=== PATIENT | female | born 1930 | race Caucasian/White ===

== ENCOUNTER → 2016-11-11 | Outpatient (CLI) | payer BC ==
[~2016-11-11] MED LIST: ACET-749 PO; ASPI81TA28 PO; ATEN50TA8 PO; CALC-20 PO; CARB25TA PO; CARB25TA12 PO; CLON0.5T3 PO; MECL1TAB42 PO; MULT-614 PO; NAPR1TAB9 PO; PRLSR20 PO; SELE5CAP2 PO; SENN-65 PO
[2016-11-11 17:33] LABS: BASO % 0.6 %; BASO ABS # 0.04 K/uL (0-0.2); COMPLETE YES; EOS % 5.3 %; HEMATOCRIT 38.2 % (37-47); IG% 0.1 %; LYMPH % 19.7 %; MEAN CELL VOLUME 95.5 fL (80-100); MEAN CORPUSCULAR HGB CONC 32.5 g/dl (32-36); MEAN PLATELET VOLUME 11.2 fL (7.4-10.4); MONO % 11.4 %; NEUT % 62.9 %; PLATELET COUNT 267 K/uL (130-400); WHITE BLOOD COUNT 7.12 K/uL (4.8-10.8)
[2016-11-11 17:49] LABS: ALT/SGPT 11 U/L (12-78); AST/SGOT 15 U/L (15-37); BLOOD UREA NITROGEN 26 mg/dl (7-18); BUN/CREATININE RATIO 23.3 (10-20); CALCIUM 9.4 mg/dl (8.5-10.1); CARBON DIOXIDE 29 mmol/L (21-32); CHLORIDE 103 mmol/L (98-107); GLUCOSE 85 mg/dl (70-99); POTASSIUM 3.7 mmol/L (3.5-5.1); SODIUM 143 mmol/L (136-145)
[2016-11-11 17:59] LABS: ALKALINE PHOSPHATASE 50 U/L (45-117); THYROID STIMULATING HORMONE 0.659 uIu/ml (0.300-4.500)
--- NOTE | 2016-11-18 08:39 | CODING QUERY MEDICAL NECESSITY ---
SUPPORTING DIAGNOSIS NEEDED A supporting diagnosis is required for the test/procedure performed on this patient in order for us to be reimbursed by the patient's insurance. Please provide a supporting diagnosis for the following test/procedure listed below next to the test name along with your signature. *If there is no additional diagnosis for this patient that would support the following test/procedure please document that below next to the test/procedure. Test(s)/Procedure(s) that require a supporting diagnosis: DOS 11/11 * Vitamin B12 DIAGNOSIS: Provider Signature: Date: Thank you [facility] Once completed, please kindly fax back to [phone] For questions please call [phone]
== END | disposition home or self-care (01) ==
LOC: C.LABPBG 14:02
PROVIDERS: ATTEND Internal Medicine Geriatric Medicine
DX: E78.5 Hyperlipidemia, unspecified (principal); I10 Essential (primary) hypertension; I47.1 Supraventricular tachycardia; M81.0 Age-related osteoporosis without current pathological fracture; G62.9 Polyneuropathy, unspecified; M54.9 Dorsalgia, unspecified

== ENCOUNTER → 2016-11-24 | Outpatient (CLI) | payer BC ==
--- NOTE | 2016-11-24 15:39 | DIAGNOSTIC IMAGING REPORT ---
CHEST 2 VIEWS ROUTINE HISTORY: SHORTNESS OF BREATH COMPARISON: Chest and left rib series 02/07/2014. FINDINGS: Moderate hiatus hernia. The heart is normal in size. The right lung is clear. There is blunting of the left lateral costophrenic sulcus. Otherwise, the left lung is clear. Old, healed right rib fracture. Tortuous thoracic aorta. Thoracolumbar spine S-shaped scoliosis. Multiple compression deformity within the lower thoracic and upper lumbar spine. IMPRESSION: 1. No focal lung consolidations to suggest pneumonia. 2. Blunting of the left lateral costophrenic sulcus. This could be chronic or due to a trace left pleural effusion. 3. Multiple age indeterminate compression deformities seen within the lower thoracic and upper lumbar spine. Electronically signed by: Maged Aguilar M.D. 11/24/2016 3:38 PM Dictated Date/Time: 11/24/2016 3:35 PM
== END | disposition home or self-care (01) ==
LOC: C.RADBC 15:09
PROVIDERS: ATTEND Internal Medicine Geriatric Medicine
DX: R06.02 Shortness of breath (principal)

== ENCOUNTER → 2017-05-19 | Outpatient (CLI) | payer BC ==
[2017-05-19 17:43] LABS: BASO % 0.4 %; BASO ABS # 0.03 K/uL (0-0.2); COMPLETE YES; EOS % 3.9 %; HEMATOCRIT 39.3 % (37-47); IG% 0.3 %; LYMPH % 19.9 %; LYMPH ABS # 1.36 K/uL (1.2-3.4); MEAN CELL VOLUME 94.5 fL (80-100); MEAN CORPUSCULAR HEMOGLOBIN 30.3 pg (25-34); MEAN CORPUSCULAR HGB CONC 32.1 g/dl (32-36); MEAN PLATELET VOLUME 12.2 fL (7.4-10.4); NEUT % 63.5 %; PLATELET COUNT 236 K/uL (130-400); RED BLOOD COUNT 4.16 M/uL (4.2-5.4); WHITE BLOOD COUNT 6.84 K/uL (4.8-10.8)
[2017-05-19 17:49] LABS: BLOOD UREA NITROGEN 27 mg/dl (7-18); BUN/CREATININE RATIO 24.9 (10-20); CALCIUM 10.1 mg/dl (8.5-10.1); CARBON DIOXIDE 29 mmol/L (21-32); CHLORIDE 107 mmol/L (98-107); GLUCOSE 93 mg/dl (70-99); POTASSIUM 4.1 mmol/L (3.5-5.1); SODIUM 143 mmol/L (136-145)
== END | disposition home or self-care (01) ==
LOC: C.LABPBG 13:39
PROVIDERS: ATTEND Internal Medicine Geriatric Medicine
DX: G20 Parkinson's disease (principal); I10 Essential (primary) hypertension; R06.02 Shortness of breath; M81.0 Age-related osteoporosis without current pathological fracture; M54.9 Dorsalgia, unspecified

== ENCOUNTER 2017-09-20 10:42 | Emergency (ER) | payer BC ==
[~2017-09-20] VITALS: Ht 162.6 cm; Wt 55.0 kg
[~2017-09-20 10:42] MED LIST changes: -ACET-749 PO; +ACET300T3 PO; -CLON0.5T3 PO; +KLN/5 PO
[2017-09-20 10:44] VITALS: Ht 162.6 cm; Wt 55.0 kg
--- NOTE | 2017-09-20 11:40 | DIAGNOSTIC IMAGING REPORT ---
R RIBS UNILATERAL WITH PA CHEST CLINICAL HISTORY: right rib pain, fall trauma. Pain. COMPARISON STUDY: None FINDINGS: Nondisplaced fractures of the posterior right fifth, 6, and seventh ribs. Remaining ribs are negative for acute abnormality. Lungs are clear with no evidence pneumothorax. IMPRESSION: Nondisplaced fractures of the right fifth through seventh ribs. No evidence pneumothorax. The above report was generated using voice recognition software. It may contain grammatical, syntax or spelling errors. Electronically signed by: Jacob Torre M.D. 09/20/2017 11:39 AM Dictated Date/Time: 09/20/2017 11:36 AM
[2017-09-20] MEDS ORDERED: OXYCODONE/ACETAMINOPHEN 5-325 TAB PO STA (11:49)
[2017-09-20] MEDS ORDERED: CARB50TA3 PO (11:53)
--- NOTE | 2017-09-20 12:45 | EMERGENCY ROOM VISIT NOTE ---
ED Visit Note First contact with patient: 10:53 I have personally seen and evaluated the patient with the physician academic assistant. I agree with the diagnostic/management decisions and have personally been involved in these decisions and agree with the diagnosis.
[2017-09-20] MEDS ORDERED: OXYC-57 PO (13:10)
--- NOTE | 2017-09-20 13:12 | EMERGENCY ROOM VISIT NOTE ---
History First contact with patient: 10:53 Chief Complaint: FALL Stated Complaint: FALL,BACK PAIN History of Present Illness The patient is a 87 year old female who presents to the Emergency Room with complaints of rib pain after a fall. The patient states that she was in the shower and slipped and fell, injuring her ribs on the tub. She reports pain in her right side. She did not strike her head. She denies any other injuries. She took Aleve this morning with some relief. She rates her discomfort an 8/ 10. Her pain is worse with movement or deep breath. She denies any difficulty breathing. She reports a history of Parkinson's disease. Review of Systems A complete 10 point review of systems was reviewed with the patient with pertinent positives and negatives as per history of present illness. All else were negative. Past Medical/Surgical History Medical Problems: (1) HYPERTENSION NOS (2) Osteoporosis (3) Parkinsons Family History Heart disease Hypertension Kidney disease or stones Social History Smoking Status: Unknown if Ever Smoked Alcohol Use: none Drug Use: none Marital Status: Housing Status: lives alone Occupation Status: retired Current/Historical Medications Scheduled Aspirin (Aspirin Ec), 81 MG PO DAILY Atenolol (Tenormin), 50 MG PO BID Calcium Carbonate-Vitamin D (Calcium 600 + D), 1 TAB PO DAILY Carbidopa-Levodopa (Carbidopa/Levodopa Er), 1 TAB PO TID Carbidopa/Levodopa (Sinemet 25MG/100MG), 0.5 TAB PO BID Omeprazole (Prilosec), 20 MG PO QAM Scheduled PRN Meclizine Hcl (Meclizine Hcl), 25 MG PO TID PRN for Dizziness or Vertigo Oxycodone/Acetaminophen 5MG/325MG (Percocet 5MG/325MG), 0.5-1 TAB PO Q6H PRN for Pain Senna/Docusate Sod (Senokot S), 2 TABS PO DAILY PRN for Constipation Physical Exam Vital Signs Date Time Temp Pulse Resp B/P (MAP) Pulse Ox O2 Delivery O2 Flow Rate FiO2 09/20/17 13:21 36.6 62 18 145/73 96 09/20/17 13:09 62 18 145/73 96 Room Air 09/20/17 10:44 36.6 68 20 160/83 94 Room Air Physical Exam VITALS: Vitals are noted on the nurse's note and reviewed by myself. Vital signs stable. GENERAL: This is an 87-year-old female, in no acute distress, occasional choreiform movements. Kyphotic. SKIN: The skin was without rashes, erythema, edema, or bruising. HEAD: Normocephalic atraumatic. EYES: Pupils equal round and reactive to light and accommodation. NECK: Supple without nuchal rigidity. Cervical spine is nontender. HEART: Regular rate and rhythm without murmurs gallops or rubs. LUNGS: Clear to auscultation bilaterally without wheezes, rales or rhonchi. MUSCULOSKELETAL: There is tenderness to palpation to the right anterior and lateral lower ribs. NEURO: Patient was alert and oriented to person place and time. Medical Decision & Procedures ER Provider Diagnostic Interpretation: R RIBS UNILATERAL WITH PA CHEST CLINICAL HISTORY: right rib pain, fall trauma. Pain. COMPARISON STUDY: None FINDINGS: Nondisplaced fractures of the posterior right fifth, 6, and seventh ribs. Remaining ribs are negative for acute abnormality. Lungs are clear with no evidence pneumothorax. IMPRESSION: Nondisplaced fractures of the right fifth through seventh ribs. No evidence pneumothorax. Medications Administered Medications (Trade) Dose Ordered Sig/Anais Route Start Time Stop Time Status Last Admin Dose Admin Oxycodone/ Acetaminophen (Percocet 5-325mg Tab) 1 tab NOW STAT PO 09/20/17 11:49 09/20/17 11:50 DC 09/20/17 11:59 1 TAB Medical Decision Differential diagnosis includes rib fracture, rib contusion, pneumothorax, intra -abdominal injury, among others. The patient was evaluated as above. Chest x-ray with left rib detail was performed and showed fractures of the left fifth through seventh ribs without pneumothorax. Patient was treated with a half tablet of Percocet in the emergency department with good relief of her pain. She was given an incentive spirometer and instructed on its use. Her pain was controlled well with the Percocet and I do not feel she will require admission for pain control. She will follow-up with her primary care provider or will return sooner for worsening pain, shortness of breath, abdominal pain, cough or any other new/ concerning symptoms. She verbalized understanding of my assessment and treatment plan and was discharged home in good condition. The patient was independently evaluated by Dr. Toribio, ED attending physician, who agreed with my assessment and treatment plan. [employer] Drug Monitoring Program Search Results: patient reviewed within database, no issues identified Medication Reconcilliation Current Medication List: was personally reviewed by me Blood Pressure Screening Patient's blood pressure: Elevated blood pressure Blood pressure disposition: Elevated BP felt to be situational Impression Primary Impression: Ribs, multiple fractures Departure Information Dispostion Home / Self-Care Condition GOOD Prescriptions Oxycodone/Acetaminophen 5MG/325MG (PERCOCET 5MG/325MG) Tab 0.5-1 TAB PO Q6H Y for Pain, #15 TAB For Initial Treatment Prov: Brissa Mittal .JUANPABLO 09/20/17 Referrals Moose Rodriguez M.D. (PCP) Patient Instructions My [facility] Additional Instructions You have been treated in the Emergency Department for Rib fractures. You have received pain medicine in the emergency department which impairs your ability to operate a vehicle. It is illegal for you to drive after receiving these medicines. You have been prescribed Percocet to be used for pain control. This is a narcotic medication. You cannot drive or consume alcohol while on this medicine. This medicine should only be used for pain that cannot be controlled with fcog-wci-qodbbpe pain medicines. He should take a stool softener while taking this medication, as it may cause constipation. For pain control, you can use the following fqkn-esh-qlamydg medicines (if >12 yo): - Regular strength (325mg/tab) Tylenol (acetaminophen) 2 tabs every 4-6 hours as needed. Do not exceed 12 tablets in a 24 hour period. Avoid taking more than 4 grams (4000 mg) of Tylenol per day. This includes any other sources of acetaminophen you may take on a regular basis. - Regular strength (200 mg/tab) Advil (ibuprofen) 1-2 tabs every 4-6 hours as needed. Do not exceed a dose of 3200 mg per day. If this is an acute injury, ice can be applied to the area of pain for the first 3 days to help decrease pain and inflammation. After the first 3 days, a heating pad can be used over the area for continued soothing relief. To minimize your discomfort, you can hug a pillow while coughing or sneezing. Additionally, you should continue to force yourself to take nice, deep breaths. Full expansion of the lungs is necessary to prevent the accumulation of fluid in the lung tissue and development of pneumonia. You should schedule a follow-up appointment in 2-3 days with your Primary Care Provider for further evaluation and treatment of your injury. Return to the Emergency Department if your current symptoms worsen despite treatment course outlined above, or if you develop any of the following symptoms : intractable pain despite aforementioned treatment course, development of a wet cough, bloody cough, fever, chills, or increased shortness of breath. Problem Qualifiers Primary Impression: Ribs, multiple fractures Encounter type: initial encounter Fracture type: closed Laterality: left Qualified Codes: S22.42XA - Multiple fractures of ribs, left side, initial encounter for closed fracture
[2017-09-20 13:21] VITALS: BP 145/73; PULSE 62; TEMP 36.6; O2SAT 96
== END 2017-09-20 13:29 | disposition home or self-care (01) ==
LOC: C.EDB 10:43 → C.EDD 13:29
DX: S22.42XA Multiple fractures of ribs, left side, initial encounter for closed fracture (principal); W18.2XXA Fall in (into) shower or empty bathtub, initial encounter; G20 Parkinson's disease; I10 Essential (primary) hypertension; M81.0 Age-related osteoporosis without current pathological fracture; Z79.82 Long term (current) use of aspirin; Z82.49 Family history of ischemic heart disease and other diseases of the circulatory system; Z84.1 Family history of disorders of kidney and ureter

== ENCOUNTER → 2017-11-17 | Outpatient (CLI) | payer BC ==
[~2017-11-17] MED LIST changes: -ACET300T3 PO; -CARB25TA PO; +CARB50TA3 PO; -KLN/5 PO; -MULT-614 PO; -NAPR1TAB9 PO; +OXYC-57 PO; -SELE5CAP2 PO
[2017-11-17 17:50] LABS: BASO % 0.5 %; BASO ABS # 0.04 K/uL (0-0.2); EOS % 4.3 %; EOS ABS # 0.35 K/uL (0-0.5); HEMATOCRIT 39.8 % (37-47); HEMOGLOBIN 12.4 g/dL (12.0-16.0); IG# 0.03 K/uL (0.00-0.02); LYMPH % 18.1 %; LYMPH ABS # 1.46 K/uL (1.2-3.4); MEAN CELL VOLUME 95.9 fL (80-100); MEAN CORPUSCULAR HEMOGLOBIN 29.9 pg (25-34); MEAN CORPUSCULAR HGB CONC 31.2 g/dl (32-36); MEAN PLATELET VOLUME 11.6 fL (7.4-10.4); MONO % 9.3 %; MONO ABS # 0.75 K/uL (0.11-0.59); NEUT % 67.4 %; NEUT ABS # 5.43 K/uL (1.4-6.5); PLATELET COUNT 280 K/uL (130-400); RED CELL DISTRIBUTION WIDTH SD 49.4 fL (36.4-46.3); WHITE BLOOD COUNT 8.06 K/uL (4.8-10.8)
[2017-11-17 18:20] LABS: ALBUMIN 3.7 gm/dl (3.4-5.0); ALT/SGPT 10 U/L (12-78); AST/SGOT 12 U/L (15-37); BLOOD UREA NITROGEN 22 mg/dl (7-18); CALCIUM 9.3 mg/dl (8.5-10.1); CARBON DIOXIDE 32 mmol/L (21-32); CREATININE 0.98 mg/dl (0.60-1.20); GLUCOSE 99 mg/dl (70-99); POTASSIUM 3.8 mmol/L (3.5-5.1); SODIUM 141 mmol/L (136-145)
[2017-11-17 18:30] LABS: ALKALINE PHOSPHATASE 58 U/L (45-117); TOTAL PROTEIN 7.2 gm/dl (6.4-8.2)
== END | disposition home or self-care (01) ==
LOC: C.LABPBG 14:03
PROVIDERS: ATTEND Internal Medicine Geriatric Medicine
DX: G20 Parkinson's disease (principal); I10 Essential (primary) hypertension; R06.02 Shortness of breath; M54.9 Dorsalgia, unspecified; M81.0 Age-related osteoporosis without current pathological fracture

== ENCOUNTER 2017-12-22 17:00 | Emergency (ER) | payer BC ==
[~2017-12-22] VITALS: Ht 154.9 cm; Wt 54.0 kg
[2017-12-22 17:11] VITALS: TEMP 36.4; Ht 154.9 cm; Wt 54.0 kg
[2017-12-22] MEDS ORDERED: CARBIDOPA/LEVODOPA 25/100MG TAB PO STA (17:28)
--- NOTE | 2017-12-22 17:51 | DIAGNOSTIC IMAGING REPORT ---
HEAD CT NONCONTRAST CT DOSE: HISTORY: fall, head injury TECHNIQUE: Multiaxial CT images of the head were performed without the use of intravenous contrast. Automated exposure control was utilized for this study. A dose lowering technique was utilized adhering to the principles of ALARA. Comparison: Head CT 05/31/2013. Findings: The paranasal sinuses and mastoid air cells are clear. The calvarium and skull base are intact. There is no mass, hematoma, midline shift, acute infarct. White matter hypodensity is nonspecific but suggestive of microvascular ischemic change. The ventricles and sulci are within normal limits. 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 Impression: No acute intracranial abnormality. Electronically signed by: Maged Aguilar M.D. 12/22/2017 5:50 PM Dictated Date/Time: 12/22/2017 5:42 PM
--- NOTE | 2017-12-22 17:54 | DIAGNOSTIC IMAGING REPORT ---
CT OF THE CERVICAL SPINE WITHOUT CONTRAST CLINICAL HISTORY: fall, head injury COMPARISON STUDY: Cervical spine CT May 31, 2013. TECHNIQUE: Helical axial images of the cervical spine were obtained without IV contrast. Sagittal and coronal reconstructions were viewed. A dose lowering technique was utilized adhering to the principles of ALARA. FINDINGS: The craniocervical junction is intact. No acute cervical spine fracture is noted. Slight anterolisthesis of C6 on C7 is unchanged. There is severe multilevel facet arthrosis and moderate multilevel degenerative disc disease. There is no prevertebral edema. A few thyroid nodules are again noted. IMPRESSION: No acute cervical spine fracture or subluxation. Electronically signed by: Leo Montes M.D. 12/22/2017 5:53 PM Dictated Date/Time: 12/22/2017 5:49 PM
--- NOTE | 2017-12-22 17:59 | EMERGENCY ROOM VISIT NOTE ---
History First contact with patient: 17:15 Chief Complaint: SHOULDER PAIN Stated Complaint: FELL, HURT SHOULDER, HIT HEAD History of Present Illness The patient is a 87 year old female who presents to the Emergency Room with complaints of a fall which occurred approximately 5 hours ago. The patient reports that she was putting something into the fridge when she lost balance and fell, bumping her head on the wall. She reports she also hit her right shoulder off the wall. She states that she has some mild pain in her right shoulder in the left side of her low back. She rates her discomfort a 3/10. She states the fall was mechanical and not associated with any dizziness/ lightheadedness, chest pain or shortness of breath. There was no loss of consciousness at the time of the injury. She does not take any anticoagulants. She reports that she has Parkinson's. She denies any confusion, nausea, numbness or weakness. She denies blurred vision or slurred speech. Review of Systems A complete 10 point review of systems was reviewed with the patient with pertinent positives and negatives as per history of present illness. All else were negative. Past Medical/Surgical History Medical Problems: (1) HYPERTENSION NOS (2) Osteoporosis (3) Parkinsons Family History Heart disease Hypertension Kidney disease or stones Social History Smoking Status: Never Smoker Alcohol Use: none Drug Use: none Marital Status: Housing Status: lives alone Occupation Status: retired Current/Historical Medications Scheduled Aspirin (Aspirin Ec), 81 MG PO DAILY Atenolol (Tenormin), 50 MG PO BID Calcium Carbonate-Vitamin D (Calcium 600 + D), 1 TAB PO DAILY Carbidopa-Levodopa (Carbidopa/Levodopa Er), 1 TAB PO TID Carbidopa/Levodopa (Sinemet 25MG/100MG), 0.5 TAB PO BID Omeprazole (Prilosec), 20 MG PO QAM Scheduled PRN Meclizine Hcl (Meclizine Hcl), 25 MG PO TID PRN for Dizziness or Vertigo Oxycodone/Acetaminophen 5MG/325MG (Percocet 5MG/325MG), 0.5-1 TAB PO Q6H PRN for Pain Senna/Docusate Sod (Senokot S), 2 TABS PO DAILY PRN for Constipation Physical Exam Vital Signs Date Time Temp Pulse Resp B/P (MAP) Pulse Ox O2 Delivery O2 Flow Rate FiO2 4/3/18 20:09 69 18 143/65 97 12/22/17 17:11 36.4 72 17 179/94 95 Room Air Physical Exam VITALS: Vitals are noted on the nurse's note and reviewed by myself. Vital signs stable. GENERAL: This is an 87-year-old female, in no acute distress, nondiaphoretic, well-developed well-nourished. SKIN: The skin was without rashes, erythema, edema, or bruising. HEAD: Normocephalic atraumatic. EARS: External auditory canals clear, tympanic membranes pearly chacko without erythema or effusion bilaterally. No hemotympanum. EYES: Pupils equal round and reactive to light and accommodation. Extraocular movements intact. NECK: Supple without nuchal rigidity. Cervical spine is nontender. HEART: Regular rate and rhythm without murmurs gallops or rubs. LUNGS: Clear to auscultation bilaterally without wheezes, rales or rhonchi. MUSCULOSKELETAL: There is mild tenderness to palpation of the anterior right shoulder. Full ROM. Wood Chopper strength 5/5 b/l. Mild tenderness in the left lumbar region, no tenderness of the lumbar spinous processes. NEURO: Patient was alert and oriented to person place and time. No focal neurological deficits. Medical Decision & Procedures ER Provider Diagnostic Interpretation: HEAD CT NONCONTRAST Findings: The paranasal sinuses and mastoid air cells are clear. The calvarium and skull base are intact. There is no mass, hematoma, midline shift, acute infarct. White matter hypodensity is nonspecific but suggestive of microvascular ischemic change. The ventricles and sulci are within normal limits. 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 Impression: No acute intracranial abnormality. CT OF THE CERVICAL SPINE WITHOUT CONTRAST FINDINGS: The craniocervical junction is intact. No acute cervical spine fracture is noted. Slight anterolisthesis of C6 on C7 is unchanged. There is severe multilevel facet arthrosis and moderate multilevel degenerative disc disease. There is no prevertebral edema. A few thyroid nodules are again noted. IMPRESSION: No acute cervical spine fracture or subluxation. RIGHT SHOULDER 3 VIEWS FINDINGS: There is no fracture or dislocation. Soft tissues are unremarkable. The right clavicle is intact. Mild osteoarthritis at the glenohumeral joint. Healing right posterior rib fractures. No acute rib fractures. IMPRESSION: No acute fracture or dislocation within the right shoulder. LUMBAR SPINE 5 VIEWS FINDINGS: No change in the dextroscoliosis of the lumbar spine. The sacrum is intact. 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 Old, healed left-sided rib fractures. Moderate to severe facet degenerative changes within the lower lumbar spine. Superior endplate compression deformities at T11 and L2. These are age-indeterminate but likely old. These demonstrate mild to moderate compression. No definite acute fractures identified. IMPRESSION: Superior endplate compression deformities at T11 and L2. These are age-indeterminate but likely old. These demonstrate mild to moderate compression. Medications Administered Medications (Trade) Dose Ordered Sig/Anais Route Start Time Stop Time Status Last Admin Dose Admin Carbidopa/Levodopa (Sinemet 25/ 100MG Tab) 0.5 tab NOW STAT PO 12/22/17 17:28 12/22/17 17:30 DC 12/22/17 17:43 0.5 TAB Medical Decision Differential diagnosis includes intracranial hemorrhage, fracture, contusion, dislocation, sprain, among others. The patient was evaluated as above. She sustained a mechanical fall today. Patient does have Parkinson's and is somewhat susceptible to falls. The fall was not associated with any lightheadedness or dizziness. CT of the head and cervical spine unremarkable. Right shoulder x-ray was performed and showed no acute fractures. X-ray of the lumbar spine did show age indeterminate compression fractures, although I favor these are old as patient did not have any direct trauma to the lumbar spine today. She was informed of this finding. She does not need any pain medication, stating that she prefers to take Tylenol for any pain. She will follow up with her primary care provider for recheck. She verbalized understanding of my assessment and treatment plan and was discharged home in good condition. Blood Pressure Screening Patient's blood pressure: Elevated blood pressure Blood pressure disposition: Elevated BP felt to be situational Impression Primary Impression: Fall Additional Impressions: Right shoulder pain Compression fracture Departure Information Dispostion Home / Self-Care Condition GOOD Referrals No Doctor, Assigned (PCP) Patient Instructions [facility] Additional Instructions For pain control, you can use the following labp-pab-plepyfc medicines (if >12 yo): - Regular strength (325mg/tab) Tylenol (acetaminophen) 2 tabs every 4-6 hours as needed. Do not exceed 12 tablets in a 24 hour period. Avoid taking more than 4 grams (4000 mg) of Tylenol per day. This includes any other sources of acetaminophen you may take on a regular basis. Follow-up with your primary care provider this week. Return to the emergency department with any worsening or new/concerning symptoms. Problem Qualifiers Primary Impression: Fall Encounter type: initial encounter Qualified Codes: W19.XXXA - Unspecified fall, initial encounter Additional Impressions: Right shoulder pain Chronicity: acute Qualified Codes: M25.511 - Pain in right shoulder
--- NOTE | 2017-12-22 19:07 | DIAGNOSTIC IMAGING REPORT ---
RIGHT SHOULDER 3 VIEWS HISTORY: fall, right shoulder pain COMPARISON: None. FINDINGS: There is no fracture or dislocation. Soft tissues are unremarkable. The right clavicle is intact. Mild osteoarthritis at the glenohumeral joint. Healing right posterior rib fractures. No acute rib fractures. IMPRESSION: No acute fracture or dislocation within the right shoulder. Electronically signed by: Maged Aguilar M.D. 12/22/2017 7:05 PM Dictated Date/Time: 12/22/2017 7:04 PM
--- NOTE | 2017-12-22 19:23 | DIAGNOSTIC IMAGING REPORT ---
LUMBAR SPINE 5 VIEWS HISTORY: fall, left low back pain COMPARISON: Lumbar spine 05/31/2013. FINDINGS: No change in the dextroscoliosis of the lumbar spine. The sacrum is intact. 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 Old, healed left-sided rib fractures. Moderate to severe facet degenerative changes within the lower lumbar spine. Superior endplate compression deformities at T11 and L2. These are age-indeterminate but likely old. These demonstrate mild to moderate compression. No definite acute fractures identified. IMPRESSION: Superior endplate compression deformities at T11 and L2. These are age-indeterminate but likely old. These demonstrate mild to moderate compression. Electronically signed by: Maged Aguilar M.D. 12/22/2017 7:22 PM Dictated Date/Time: 12/22/2017 7:17 PM
--- NOTE | 2017-12-22 19:47 | EMERGENCY ROOM VISIT NOTE ---
ED Visit Note First contact with patient: 17:15 The patient was seen and examined with Brissa Brenner PA-C. I agree with the history, physical and findings. Please see the note for disposition and details.
[2017-12-22 20:09] VITALS: BP 143/65; PULSE 69; O2SAT 97
== END 2017-12-22 20:09 | disposition home or self-care (01) ==
LOC: C.EDB 17:01 → C.EDD 20:09
DX: M25.511 Pain in right shoulder (principal); M54.5 Low back pain; W19.XXXA Unspecified fall, initial encounter; W22.09XA Striking against other stationary object, initial encounter; M48.56XD Collapsed vertebra, not elsewhere classified, lumbar region, subsequent encounter for fracture with routine healing; I10 Essential (primary) hypertension; G20 Parkinson's disease; M81.0 Age-related osteoporosis without current pathological fracture; Z79.82 Long term (current) use of aspirin; Z82.49 Family history of ischemic heart disease and other diseases of the circulatory system; Z84.1 Family history of disorders of kidney and ureter